=== PATIENT | female | born 1975 | race African-American/Black ===

== ENCOUNTER → 2018-11-12 16:17 | Outpatient (CLI) | payer BC | END | disposition home or self-care (01) | LOC: D.US 16:17 | PROVIDERS: ATTEND Internal Medicine Cardiovascular Disease | DX: R60.0 Localized edema (principal) ==

== ENCOUNTER → 2018-11-18 08:49 | Outpatient (CLI) | payer BC | END | disposition home or self-care (01) | LOC: D.HCCARDIO 08:30 | PROVIDERS: ATTEND Internal Medicine Cardiovascular Disease | DX: R06.00 Dyspnea, unspecified (principal) ==

== ENCOUNTER → 2019-06-25 09:05 | Outpatient (CLI) | payer BC | END | disposition home or self-care (01) | LOC: D.HCCECHO 09:00 | PROVIDERS: ATTEND Internal Medicine Cardiovascular Disease | DX: I10 Essential (primary) hypertension (principal) ==